=== PATIENT | female | born 1945 | race Caucasian/White ===

== ENCOUNTER 2018-05-13 20:37 | Emergency (ER) | payer OTHER, MEDICAID ==
[~2018-05-13] VITALS: Ht 165.1 cm; Wt 70.3 kg
--- NOTE | 2018-05-13 20:48 | NUR ---
Dr. Capps at bedside for MSE.
[2018-05-13] MEDS ORDERED: IV NORMAL SALINE 1000 ML BAG IV ONE (21:00)
[2018-05-13] MEDS ORDERED: ONDANSETRON 4 MG/2 ML VIAL IV ONE (21:00)
[2018-05-13] MEDS ORDERED: MORPHINE SULFATE 2 MG/1 ML DISP.SYRIN IV ONE (21:00)
[2018-05-13] MEDS ORDERED: MORPHINE SULFATE 2 MG/1 ML DISP.SYRIN ONE (21:04)
[2018-05-13 21:05] LABS: BASOPHILS # (AUTO) 0.1 K/uL (0.0-8.0); BASOPHILS % (AUTO) 0.7 % (0.0-2.0); EOSINOPHILS # (AUTO) 0.2 K/uL (0.0-0.7); EOSINOPHILS % (AUTO) 2.7 % (0.0-7.0); HEMATOCRIT 39.6 % (31.2-41.9); HEMOGLOBIN 13.7 g/dL (10.9-14.3); LYMPHOCYTES # (AUTO) 2.8 K/uL (20.0-40.0); LYMPHOCYTES % (AUTO) 32.2 % (20.5-51.5); MEAN CORPUSCULAR HEMOGLOBIN 31.7 uug (24.7-32.8); MEAN CORPUSCULAR HGB CONC 35 g/dL (32.3-35.6); MEAN CORPUSCULAR VOLUME 91.8 fL (75.5-95.3); MONOCYTES # (AUTO) 0.6 K/uL (2.0-10.0); MONOCYTES % (AUTO) 7.4 % (0.0-11.0); NEUTROPHILS # (AUTO) 4.9 K/uL (1.8-8.9); PLATELET COUNT (AUTO) 303 K/uL (179-408); RED BLOOD CELL COUNT(AUTO) 4.32 MIL/uL (3.63-4.92); WHITE BLOOD COUNT (AUTO) 8.6 K/uL (3.8-11.8)
[2018-05-13] MEDS ORDERED: ONDANSETRON 4 MG/2 ML VIAL ONE (21:05)
[2018-05-13 21:15] LABS: CARBON DIOXIDE 24 mmol/L (21-32); CHLORIDE 105 mmol/L (98-107); CREATININE 0.9 mg/dL (0.6-1.3); GLUCOSE 112 mg/dL (74-106); POTASSIUM 3.2 mmol/L (3.5-5.1); UREA NITROGEN, BLOOD 18 mg/dL (7-18)
[2018-05-13 21:21] LABS: ALANINE AMINOTRANSFERASE 28 U/L (14-59); ALKALINE PHOSPHATASE 91 U/L (50-136); ASPARTATE AMINOTRANSFERASE 22 U/L (15-37); BILIRUBIN,DIRECT 0.1 mg/dL (0.0-0.2); BILIRUBIN,TOTAL 0.3 mg/dL (0.2-1.0); TOTAL PROTEIN, SERUM 7.5 g/dL (6.4-8.2)
[2018-05-13] MEDS ORDERED: SWABABLE VALVE TRANSFER SET EA MC ONE (21:40)
[2018-05-13] MEDS ORDERED: NORMAL SALINE FLUSH 10 ML DISP.SYRIN ONE (21:40)
[2018-05-13] MEDS ORDERED: IV NORMAL SALINE 250 ML IV ONE (21:40)
[2018-05-13] MEDS ORDERED: IOHEXOL 300MG/ML 100 ML INFUS..BTL ONE (21:40)
--- NOTE | 2018-05-13 21:45 | NUR ---
Pt out of ER for CT.
--- NOTE | 2018-05-13 22:13 | NUR ---
Pt back to ER from CT.
--- NOTE | 2018-05-13 23:05 | NUR ---
Pt out of ER for Xray.
--- NOTE | 2018-05-13 23:10 | NUR ---
Pt back to ER from Xray.
--- NOTE | 2018-05-14 00:01 | NUR ---
CALLED [facility]. [facility] WILL CALL BACK
--- NOTE | 2018-05-14 02:13 | NUR ---
[facility] CALLED BACK WITH TRANSFER INFO. PATIENT WILL BE GOING TO [facility] TELEMETRY FLOOR ROOM 5310A. CALL FOR REPORT IS . ETA FOR [facility]ACHINE TENDER BY [facility] IS AT [phone]
--- NOTE | 2018-05-14 02:43 | NUR ---
GAVE SBAR REPORT TO YAHAIRA RUIZ FROM [facility]. ACCEPTING MD IS DR CORBIN
--- NOTE | 2018-05-14 02:46 | NUR ---
[place] arrived to ER to transport patient to [facility]. Report and documentation provided to EMT.
--- NOTE | 2018-05-14 02:53 | NUR ---
Patient out of ER via [place], to be transported to [facility].
== END 2018-05-14 02:57 | disposition short-term general hospital (02) ==
LOC: ER 20:40
DX: S29.9XXA Unspecified injury of thorax, initial encounter (principal); E78.5 Hyperlipidemia, unspecified; V49.9XXA Car occupant (driver) (passenger) injured in unspecified traffic accident, initial encounter; Y93.89 Activity, other specified; Y92.410 Unspecified street and highway as the place of occurrence of the external cause; Y99.8 Other external cause status
CPT/HCPCS: 36415 ×2; 71260; 72052; 72125; 80048; 80076; 84484 ×2; 85025; 85730; 93005 ×2; 96374; 96375; 99285; J2270; J2405; Q9967; 70030-TC; A4663; J3490; J7030; J7050